=== PATIENT | male | born 1940 | race Caucasian/White ===

== ENCOUNTER → 2017-03-09 | Outpatient (CLI) | payer MEDICARE ==
[~2017-03-09] MED LIST: AMLO10TA2 PO; ATOR10TA9 PO; GABA300C10 PO; IRBE150T25 PO; MELO7.5T31 PO; METO25TA91 PO
[2017-03-09 10:21] LABS: BASOPHILS # (AUTO) 0.05 x10^3/uL (0-0.1); BASOPHILS % (AUTO) 1 % (0-1); EOSINOPHILS # (AUTO) 0.09 x10^3/uL (0-0.4); EOSINOPHILS % (AUTO) 1 % (1-7); LYMPHOCYTES # (AUTO) 1.27 x10^3/uL (1-3.4); LYMPHOCYTES % (AUTO) 15 % (22-44); MD NO; MEAN CORPUSCULAR HGB CONC 33.7 g/dL (33.2-36.2); MEAN CORPUSCULAR VOLUME 98.1 fL (81-97); MEAN PLATELET VOLUME 7.1 fL (7.4-10.4); MONOCYTES # (AUTO) 0.53 x10^3/uL (0.2-0.8); MONOCYTES % (AUTO) 6 % (2-9); NEUTROPHILS # (AUTO) 6.78 x10^3/uL (1.8-6.8); NEUTROPHILS % (AUTO) 78 % (42-75); PLATELET COUNT 276 x10^3/uL (130-400); RED BLOOD COUNT 4.88 x10^6/uL (4.38-5.82); RED CELL DISTRIBUTION WIDTH 12.9 % (9.4-14.8)
[2017-03-09 10:34] LABS: ALANINE AMINOTRANSFERASE 17 U/L (12-78); ALBUMIN 3.9 g/dL (3.4-5.0); ANION GAP 7 mmol/L (5-15); CALCIUM 8.9 mg/dL (8.5-10.1); CHLORIDE 107 mmol/L (98-107); CREATININE 0.97 mg/dL (0.7-1.3)
[2017-03-09 10:36] LABS: ALKALINE PHOSPHATASE 79 U/L (45-117); BILIRUBIN,TOTAL 0.6 mg/dL (0.2-1.0); TOTAL PROTEIN 7.6 g/dL (6.4-8.2)
[2017-03-09 10:52] LABS: MICROSCOPIC NOT IND
[2017-03-09 10:57] LABS: CULTURE INDICATED? NO
== END ==
LOC: STAR 08:57
PROVIDERS: ATTEND Orthopaedic Surgery Orthopaedic Surgery of the Spine
DX: Z01.818 Encounter for other preprocedural examination (principal); J98.11 Atelectasis; M48.062 Spinal stenosis, lumbar region with neurogenic claudication; M96.1 Postlaminectomy syndrome, not elsewhere classified
CPT/HCPCS: 36415; 71046; 80053; 81003; 85025; 93005

== ENCOUNTER 2017-03-18 06:07 | Inpatient (IN) | payer MEDICARE ==
[~2017-03-18] VITALS: Ht 177.8 cm; Wt 92.6 kg
[2017-03-18] MEDS: LACTATED RINGERS 1,000 ML IV SCH (06:50)
[2017-03-18] MEDS ORDERED: HEPARIN 1,000 UNITS/ML, 30ML ONE (07:03)
[2017-03-18] MEDS ORDERED: TRANEXAMIC ACID 100 MG/ML, 10ML ONE ×2 (07:10→07:11)
[2017-03-18] MEDS ORDERED: BUPIVACAINE/PF 0.5% ONE (07:10)
[2017-03-18] MEDS ORDERED: EPINEPHRINE 1 MG/ML, 1ML ONE (07:11)
[2017-03-18] MEDS ORDERED: VANCOMYCIN 1,000 MG ONE (07:11)
[2017-03-18] MEDS ORDERED: BACITRACIN 50,000 UNIT ONE (07:11)
[2017-03-18] MEDS ORDERED: THROMBIN 5,000 UNIT VIAL TP ONE (07:11)
[2017-03-18] MEDS ORDERED: ROCURONIUM 10 MG/ML,10ML ONE (07:30)
[2017-03-18] MEDS ORDERED: LIDOCAINE-MPF 2% ,5ML ONE (07:30)
[2017-03-18] MEDS ORDERED: PROPOFOL 10 MG/ML, 20ML ONE (07:30)
[2017-03-18] MEDS ORDERED: FENTANYL PF 250 MCG/5ML ONE (07:35)
[2017-03-18] MEDS ORDERED: MIDAZOLAM 1 MG/ML, 2ML ONE (07:37)
[2017-03-18] MEDS ORDERED: ONDANSETRON 2MG/ML, 2ML IVPush PRN (08:00)
[2017-03-18] MEDS ORDERED: HYDROcodone/APAP 7.5-325MG/15ML UDC PO PRN (08:00)
[2017-03-18] MEDS ORDERED: CEFAZOLIN 1,000 MG ONE (08:00)
[2017-03-18] MEDS ORDERED: OXYcodone 5 MG/5 ML ORAL.SOL UDC PO PRN (08:00)
[2017-03-18] MEDS ORDERED: LIDOCAINE 4%, 4 ML SYR/CANN TP ONE (08:00)
[2017-03-18] MEDS ORDERED: EPHEDRINE 50 MG/ML, 1ML ONE (08:00)
[2017-03-18] MEDS ORDERED: ACETAMINOPHEN 325 MG TABLET PO PRN ×2 (08:00→09:00)
[2017-03-18] MEDS ORDERED: MEPERIDINE/PF 25MG/0.5ML IVPush PRN (08:00)
[2017-03-18] MEDS ORDERED: DEXAMETHASONE 4 MG/ML, 1ML ONE ×2 (08:54)
[2017-03-18] MEDS ORDERED: PHARMACY MAY ADJ FOR RENAL FX MC PRN (09:00)
[2017-03-18] MEDS ORDERED: GABAPENTIN 300 MG CAPSULE PO SCH ×2 (09:00→16:00)
[2017-03-18] MEDS ORDERED: IRBESARTAN 150 MG TABLET PO SCH ×3 (09:00→17:12)
[2017-03-18] MEDS ORDERED: PHENYLEPHRINE 10 MG/ML ONE (09:02)
[2017-03-18] MEDS ORDERED: ONDANSETRON 2MG/ML, 2ML ONE (09:48)
[2017-03-18] MEDS ORDERED: NEOSTIGMINE 1 MG/ML, 10ML ONE (11:12)
[2017-03-18] MEDS ORDERED: GLYCOPYRROLATE 0.2MG/1ML, 5ML ONE (11:13)
[2017-03-18] MEDS ORDERED: FENTANYL PF 100 MCG/2ML ONE ×2 (11:42→12:28)
[2017-03-18] MEDS ORDERED: ACETAMINOPHEN 650 MG/20.3 ML UDC ONE (12:28)
[2017-03-18] MEDS ORDERED: OXYcodone 5 MG/5 ML ORAL.SOL UDC ONE (12:28)
[2017-03-18] MEDS ORDERED: morphine SULFATE 10 MG/ML, 1ML ONE (12:28)
[2017-03-18] MEDS ORDERED: ACETAMINOPHEN 325 MG TABLET ONE ×2 (12:28→12:29)
[2017-03-18] MEDS: FENTANYL PF 100 MCG/2ML IV PRN ×2 (12:33→12:52)
[2017-03-18] MEDS: morphine SULFATE 10 MG/ML, 1ML IV PRN ×2 (12:37→12:59)
[2017-03-18] MEDS ORDERED: AMLODIPINE 5 MG TABLET PO SCH ×2 (14:00→17:08)
[2017-03-18] MEDS ORDERED: METOPROLOL SUCCINATE 25 MG TAB.ER.24H PO SCH (14:00)
[2017-03-18] MEDS: DIAZEPAM 2 MG TABLET PO PRN ×2 (14:29→21:52)
[2017-03-18] MEDS ORDERED: HYDROmorphone 2 MG/ML, 1ML IV PRN (15:00)
[2017-03-18] MEDS: OXYcodone/APAP 5/325MG TABLET PO PRN ×2 (16:40→21:58)
[2017-03-18] MEDS: CEFAZOLIN PMX 1GM/50ML 50 ML IVPB SCH (16:41)
[2017-03-18] MEDS: GABAPENTIN 300 MG CAPSULE PO SCH ×2 (17:21→21:52)
[2017-03-18 20:21] VITALS: BP 119/71
[2017-03-18] MEDS ORDERED: MELOXICAM 15 MG TABLET PO SCH (21:00)
[2017-03-18] MEDS: ATORVASTATIN 10 MG TABLET PO SCH (21:52)
[2017-03-18 23:47] VITALS: BP 122/76
[2017-03-19] VITALS (7 sets, daily range): BP systolic 77–131; BP diastolic 44–78
[2017-03-19] MEDS: CEFAZOLIN PMX 1GM/50ML 50 ML IVPB SCH (00:16)
[2017-03-19] MEDS: LACTATED RINGERS 1,000 ML IV SCH (00:17)
[2017-03-19] MEDS ORDERED: METOPROLOL SUCCINATE 50 MG TAB.ER.24H PO SCH (06:00)
[2017-03-19] MEDS: DIAZEPAM 2 MG TABLET PO PRN (06:10)
[2017-03-19] MEDS: OXYcodone/APAP 5/325MG TABLET PO PRN ×2 (06:10→19:35)
[2017-03-19] MEDS: GABAPENTIN 300 MG CAPSULE PO SCH ×3 (08:23→22:27)
[2017-03-19] MEDS: TAMSULOSIN 0.4 MG CAP.ER.24H PO SCH (08:23)
[2017-03-19] MEDS ORDERED: TAMS-11 PO (09:50)
[2017-03-19] MEDS ORDERED: SODIUM CHLORIDE 0.9% 1,000ML IVBOLUS ONE (14:00)
[2017-03-19 18:25] LABS: BASOPHILS # (AUTO) 0.04 x10^3/uL (0-0.1); BASOPHILS % (AUTO) 0 % (0-1); EOSINOPHILS # (AUTO) 0.04 x10^3/uL (0-0.4); EOSINOPHILS % (AUTO) 0 % (1-7); LYMPHOCYTES # (AUTO) 1.16 x10^3/uL (1-3.4); LYMPHOCYTES % (AUTO) 7 % (22-44); MD NO; MEAN CORPUSCULAR HEMOGLOBIN 33.1 pg (27.5-34.5); MEAN CORPUSCULAR HGB CONC 33.8 g/dL (33.2-36.2); MEAN CORPUSCULAR VOLUME 97.9 fL (81-97); MEAN PLATELET VOLUME 7.2 fL (7.4-10.4); MONOCYTES # (AUTO) 1.14 x10^3/uL (0.2-0.8); MONOCYTES % (AUTO) 7 % (2-9); NEUTROPHILS # (AUTO) 14.43 x10^3/uL (1.8-6.8); NEUTROPHILS % (AUTO) 86 % (42-75); PLATELET COUNT 248 x10^3/uL (130-400); RED BLOOD COUNT 4.18 x10^6/uL (4.38-5.82); RED CELL DISTRIBUTION WIDTH 13.1 % (9.4-14.8)
[2017-03-19 18:36] LABS: ANION GAP 6 mmol/L (5-15); CALCIUM 8.1 mg/dL (8.5-10.1); CHLORIDE 105 mmol/L (98-107); CREATININE 0.95 mg/dL (0.7-1.3)
[2017-03-19 18:39] LABS: TROPONIN I < 0.015 ng/mL (0.000-0.045)
[2017-03-19] MEDS ORDERED: HYDROmorphone 2 MG/ML, 1ML IV PRN (19:00)
[2017-03-19] MEDS: ATORVASTATIN 10 MG TABLET PO SCH (22:27)
[2017-03-20 00:05] LABS: TROPONIN I < 0.015 ng/mL (0.000-0.045)
[2017-03-20 01:47] VITALS: BP_SYST 105; BP_SYST 125; BP_SYST 133; BP_DIAS 56; BP_DIAS 69; BP_DIAS 76
[2017-03-20] MEDS: OXYcodone/APAP 5/325MG TABLET PO PRN (05:11)
[2017-03-20 05:13] VITALS: BP 119/66
[2017-03-20] MEDS ORDERED: METOPROLOL SUCCINATE 50 MG TAB.ER.24H PO SCH (06:00)
[2017-03-20 06:08] LABS: ANION GAP 8 mmol/L (5-15); CHLORIDE 104 mmol/L (98-107)
[2017-03-20 06:12] LABS: TROPONIN I < 0.015 ng/mL (0.000-0.045)
[2017-03-20] MEDS ORDERED: LACTATED RINGERS 1,000 ML IVBOLUS ONE (06:30)
[2017-03-20 07:21] VITALS: BP 113/65
[2017-03-20] MEDS ORDERED: AMLODIPINE 5 MG TABLET PO SCH (09:00)
[2017-03-20] MEDS ORDERED: IRBESARTAN 150 MG TABLET PO SCH (09:00)
[2017-03-20] MEDS: TAMSULOSIN 0.4 MG CAP.ER.24H PO SCH (09:28)
[2017-03-20] MEDS: GABAPENTIN 300 MG CAPSULE PO SCH (09:29)
[2017-03-20 10:52] VITALS: BP 107/61
[2017-03-20 10:53] VITALS: BP 109/63
[2017-03-20 10:55] VITALS: BP 118/72
== END 2017-03-20 12:14 | disposition home or self-care (01) | DRG 460 ==
LOC: ORIP 06:07 → 4NOR 13:46 → 4WST 03-19 18:45
PROVIDERS: ADMIT Orthopaedic Surgery Orthopaedic Surgery of the Spine; ATTEND Orthopaedic Surgery Orthopaedic Surgery of the Spine
PROC: 4A11X4G Monitoring of Peripheral Nervous Electrical Activity, Intraoperative, External Approach (ICD-10-PCS; 2017-03-18)
PROC: 0T7D8ZZ Dilation of Urethra, Via Natural or Artificial Opening Endoscopic (ICD-10-PCS; 2017-03-18)
PROC: 0SG10A0 Fusion of 2 or more Lumbar Vertebral Joints with Interbody Fusion Device, Anterior Approach, Anterior Column, Open Approach (ICD-10-PCS; principal; 2017-03-18 08:00)
DX: M51.36 Other intervertebral disc degeneration, lumbar region (principal); E86.0 Dehydration; M47.9 Spondylosis, unspecified; M48.061 Spinal stenosis, lumbar region without neurogenic claudication; N35.9 Urethral stricture, unspecified; E86.1 Hypovolemia; I10 Essential (primary) hypertension; I95.1 Orthostatic hypotension; N40.1 Benign prostatic hyperplasia with lower urinary tract symptoms; R33.8 Other retention of urine; Z87.891 Personal history of nicotine dependence; Z96.653 Presence of artificial knee joint, bilateral; Z98.1 Arthrodesis status
CPT/HCPCS: 36415; 70450; 71275; 72100; 74018; 80048; 82962; 83605; 83735; 84484; 85018; 85025; 86850; 86900; 93005; 93306; C1713; C1776; J0171; J0690; J1100; J1170; J1644; J2250; J2405; J2704; J2710; J3010; J3370; J3490; C1762; J2270; J2370; J7030; J7120